=== PATIENT | male | born 1960 | race Caucasian/White ===

== ENCOUNTER 2021-08-22 06:09 | Emergency (ER) | payer MEDICARE, SELFPAY ==
[2021-08-22] VITALS (7 sets, daily range): BP systolic 150–188; BP diastolic 88–130; PULSE 88–93; RESP 18–19; TEMP 36.6; O2SAT 92–97; BMI 29.0
--- NOTE | 2021-08-22 06:02 | CT_ITS ---
PROCEDURE INFORMATION: Exam: CT Head Without Contrast Exam date and time: 08/22/2021 6:14 AM Age: 61 years old Clinical indication: Walking, difficulty; Additional info: Poss CVA, trouble walking , nihss 0 TECHNIQUE: Imaging protocol: Computed tomography of the head without contrast. Radiation optimization: All CT scans at this facility use at least one of these dose optimization techniques: automated exposure control; mA and/or kV adjustment per patient size (includes targeted exams where dose is matched to clinical indication); or iterative reconstruction. Other technique: STROKE PROTOCOL was implemented. COMPARISON: No relevant prior studies available. FINDINGS: Brain: Normal. No hemorrhage. Unremarkable white matter. No mass effect. Cerebral ventricles: No ventriculomegaly. Paranasal sinuses: Visualized sinuses are unremarkable. No fluid levels. Mastoid air cells: Visualized mastoid air cells are well aerated. Bones/joints: Unremarkable. No acute fracture. Soft tissues: Unremarkable. IMPRESSION: No acute intracranial abnormality. ASSESSMENT: ASPECTS ([place] Stroke Program Early CT Score) is 10.
--- NOTE | 2021-08-22 06:05 | XR_ITS ---
PROCEDURE INFORMATION: Exam: XR Chest Exam date and time: 08/22/2021 6:25 AM Age: 61 years old Clinical indication: Other: Difficulty walking, nausea, ; additional info: Poss CVA TECHNIQUE: Imaging protocol: XR of the chest. Views: 1 view. COMPARISON: No relevant prior studies available. FINDINGS: Lungs: Unremarkable. No consolidation. Pleural spaces: Unremarkable. No pleural effusion. No pneumothorax. Heart/Mediastinum: Unremarkable. No cardiomegaly. Bones/joints: Unremarkable. IMPRESSION: No acute findings.
--- NOTE | 2021-08-22 06:08 | ECG_ITS ---
APPROVED REPORT Exam: Resting ECG HR:94 bpm ECG Measurements Heart Rate 94 AXES TX 168 P 70 QRSd 127 QRS 3 QT 368 T 75 QTc 420 Conclusion SINUS RHYTHM MODERATE INTRAVENTRICULAR CONDUCTION DELAY [110+ ms QRS DURATION] BORDERLINE ECG UNCONFIRMED REPORT Electronically signed by : Avtar King MD 08/24/2021 17:36:59
[2021-08-22 06:14] LABS: Basophils # 0.1 K/mm3 (0-0.2); Basophils % 1.6 % (0.1-2.0); Eosinophils # 0.2 K/mm3 (0.0-0.4); Eosinophils % 3.7 % (0.1-12.0); Hematocrit 48.8 % (42.0-52.0); Hemoglobin 16.2 g/dL (14.1-18.0); Lymphocytes # 1.2 K/mm3 (0.7-4.5); Lymphocytes % 27.2 % (10-50); Mean Corpuscular HGB Conc 33.1 g/dL (31.8-35.4); Mean Corpuscular Hemoglobin 33.3 pg (27.0-31.2); Mean Corpuscular Volume 100.4 fl (80-94); Monocytes # 0.4 K/mm3 (0.1-1.0); Monocytes % 8.6 % (1.7-9.3); Neutrophils # 2.5 K/mm3 (1.8-7.8); Neutrophils % 58.8 % (37.0-80.0); Platelet Count 245 K/mm3 (142-424); Red Blood Count 4.86 M/mm3 (4.60-6.20); Red Cell Distribution Width 15.3 % (11.5-17.5); White Blood Count 4.2 K/mm3 (4.8-10.8)
[2021-08-22 06:18] LABS: Chloride 99 mmol/L (98-107); Potassium 3.7 mmoL/L (3.5-5.1); Sodium 137 mmol/L (136-145)
[2021-08-22 06:20] LABS: Alanine Aminotransferase 71 U/L (12-78); Anion Gap 11.7 mEq/L (5-15); Aspartate Amino Transferase 56 U/L (17-59); Blood Urea Nitrogen 9 mg/dl (9-20); Carbon Dioxide 30 mmol/L (22.0-30.0); Creatinine Clearance Estimated 84 mL/min (50-200); Estimated Glomerular Filt Rate 69 ml/min (>60); GFR (African American) 83 ML/MIN (>60)
[2021-08-22 06:21] LABS: Albumin Level 4.4 g/dl (3.5-5.0); Alkaline Phosphatase 63 U/L (38-126); Bilirubin,Total 0.5 mg/dl (0.2-1.3); Calcium 8.6 mg/dl (8.4-10.2); Globulin 2.2 g/dL (1.3-3.2); Glucose 108 mg/dl (74-100); Magnesium 1.9 mg/dl (1.6-2.3); Total Protein,Serum 6.6 g/dl (6.3-8.2)
--- NOTE | 2021-08-22 06:26 | [facility].EDWEAK ---
ED Disposition Clinical Impression: Weakness Disposition: Home, Self-Care Condition on Discharge: Good Instructions: DI for Muscle Weakness Additional Instructions: fluids and see pcp for follow up - Critical Care Critical Care Time: No Attestation: On , the high probability of a clinically significant, sudden or life threatening deterioration of the following system(s) required my full and direct attention, intervention and personal management. The time I documented below is in addition to time spent performing reported procedures but includes the following listed in this critical care notation. Medical Decision Making - Medical Records Medical records reviewed: Yes: I reviewed the patient's medical records. - Roger Inquiry Pt receiving controlled substance: No Vital Signs: 08/22/21 05:58 08/22/21 06:30 08/22/21 07:00 Temperature 97.8 F Temperature Source Oral Pulse Rate 93 H 88 Pulse Rate [Right] 89 Respiratory Rate 18 Blood Pressure 180/109 H 188/130 H Blood Pressure [Right Arm] 153/96 H Blood Pressure Mean 127 146 Blood Pressure Mean [Right Arm] 115 02 Sat by Pulse Oximetry 96 97 92 L Oxygen Delivery Method Room Air - Lab Data Lab results reviewed: Yes: I reviewed the patient's lab results. Lab Results 08/22/21 05:55: WBC 4.2 L, RBC 4.86, Hgb 16.2, Hct 48.8, MCV 100.4 H, MCH 33.3 H, MCHC 33.1, RDW 15.3, Plt Count 245, MPV 8.0, Neut % (Auto) 58.8, Lymph % (Auto) 27.2, Worth % (Auto) 8.6, Eos % (Auto) 3.7, Baso % (Auto) 1.6, Neut # (Auto) 2.5, Lymph # (Auto) 1.2, Worth # (Auto) 0.4, Eos # (Auto) 0.2, Baso # (Auto) 0.1 08/22/21 05:55: Sodium 137, Potassium 3.7, Chloride 99, Carbon Dioxide 30, Anion Gap 11.7, BUN 9, Creatinine 1.10, Estimated Creat Clear 84, Estimated GFR 69, Est GFR ( Amer) 83, Glucose 108 H, Calcium 8.6, Magnesium 1.9, Total Bilirubin 0.5, AST 56, ALT 71, Alkaline Phosphatase 63, Troponin I < 0.01, Total Protein 6.6, Albumin 4.4, Globulin 2.2, Albumin/Globulin Ratio 2.0 H, Salicylates < 1.0 L, Acetaminophen < 10 L 08/22/21 05:55: Plasma/Serum Alcohol < 10 08/22/21 05:55: ESR 5 08/22/21 05:55: C-Reactive Protein 1.0, Procalcitonin 0.095 Result diagrams: 08/22/21 05:55 08/22/21 05:55 Orders (Tests/Meds): ED MEDICATIONS Discontinued Medications Generic Name Dose Route Start Last Admin Trade Name Freq PRN Reason Stop Dose Admin Sodium Chloride 1,000 mls @ 999 mls/hr 08/22/21 06:30 08/22/21 06:19 Sod Chlor 0.9% 1000ml Bag IV 08/22/21 07:30 999 mls/hr .Q1H1M TRINH Administration Ondansetron HCl 4 mg 08/22/21 06:28 08/22/21 06:33 Ondansetron 4mg/2ml Vial IV 08/22/21 06:29 4 mg ONCE ONE Administration ORDERS Category Date Time Status Drug Screen,Urine Stat Lab 08/22/21 05:55 Ordered Lamotrigine (Lamictal) Stat Lab 08/22/21 05:55 Received Troponin I Q3H Lab 08/22/21 09:15 Ordered Troponin I Q3H Lab 08/22/21 12:15 Ordered Urinalysis and Microscopic Stat Lab 08/22/21 06:02 Ordered - Radiology Data #1 Image(s): Chest Image Reviewed: Yes I have reviewed radiologist's interpretation Preliminary Findings: Normal/NAD - CT Data CT Scan: Head Time Received: 06:[address] Reviewed: Yes: I have viewed the radiologist's interpretation Preliminary Findings: Normal/NAD - ECG Data Tracing #1 Normal Sinus Rhythm: Yes Ischemic changes: non-specific ST-T wave changes Medical Decision Narrative: has no acute focal changes with stable exam and labs - Weakness HPI - General Chief complaint: Weakness Stated complaint: Trouble walking Time Seen by Provider: 08/22/21 06:26 Mode of Arrival: EMS Source of Information: Patient, EMS, Medical Record Limitations: No Limitations Description of Symptoms (Recalled from ER Triage Doc. by RN): Pt c/o difficulty walking, states I think I am having a stroke . NIHSS 0. Pt was able to ambulate from EMS stretcher to bed. He denies headache, vision changes, or chest pain. He
[2021-08-22 06:27] LABS: Acetaminophen < 10 ug/ml (10-30); Ethyl Alcohol < 10 mg/dl (0-10); Salicylate < 1.0 mg/dL (2.0-20.0)
--- NOTE | 2021-08-22 06:31 | PC.NURSE ---
Per lab, [facility] is a send out level, notified.
--- NOTE | 2021-08-22 06:32 | PC.NURSE ---
Dr. Reyes s/w [facility]. Normal head ct
[2021-08-22 06:41] LABS: Erythrocyte Sedimentation Rate 5 mm/hr (0-20)
[2021-08-22 06:42] LABS: Troponin I < 0.01 ng/ml (0.00-0.034)
--- NOTE | 2021-08-22 06:58 | PC.NURSE ---
Phone number given by patient to call for someone to pick him up. [phone] voice mail left
[2021-08-22 07:08] LABS: Procalcitonin 0.095 ng/mL (0.0-2.0)
--- NOTE | 2021-08-22 07:22 | PC.NURSE ---
attempted to call pt friend [place], busy tone at this time
--- NOTE | 2021-08-22 07:44 | PC.NURSE ---
Busy tone for Jaime went to voicemail
--- NOTE | 2021-08-22 07:47 | PC.NURSE ---
Pt gave alternate number for voice [place]
[2021-08-24 14:50] LABS: Lamotrigine (Lamictal) 23.8 ug/mL (2.0-20.0)
== END 2021-08-22 08:53 | disposition home or self-care (01) ==
LOC: ER 07:45
PROVIDERS: Emergency Provider Emergency Medicine; PCP Family Medicine
DX: R53.83 Other fatigue (principal)
CPT/HCPCS: 70450; 71045; 80053; 80168; 80329; 83735; 84145; 84484; 85025; 85651; 86140; 93005; 96360; 96365; 96375; 99284; J2405